=== PATIENT | female | born 1985 | race Caucasian/White ===

== ENCOUNTER 2024-02-23 22:06 | Outpatient (CLI) | payer OTHER | END 2024-02-23 22:07 | disposition critical access hospital (66) | LOC: EMS 22:06 | DX: S01.112A Laceration without foreign body of left eyelid and periocular area, initial encounter (principal); R51.9 Headache, unspecified; W18.30XA Fall on same level, unspecified, initial encounter; Y93.G3 Activity, cooking and baking; Y92.000 Kitchen of unspecified non-institutional (private) residence as the place of occurrence of the external cause; F10.90 Alcohol use, unspecified, uncomplicated | CPT/HCPCS: A0425; A0429 ==

== ENCOUNTER 2024-02-23 22:24 | Emergency (ER) | payer OTHER ==
--- NOTE | 2024-02-23 23:49 | ED Physician Documentation ---
PD HPI SYNCOPE - Stated complaint Stated Complaint: SYNCOPE/FACE LAC - Chief complaint Chief Complaint: Neuro - History obtained from History obtained from: Patient - History of Present Illness Timing - onset: Enter time (21:15) Duration: Minutes Preceding symptoms: Light headed, Generalized weakness - Additional information Additional information: HPI from patient as well as s.o. (in ED at bedside). Patient presents due to syncopal episode. Patient was at home cooking dinner when she suddenly became lightheaded and had generalized weakness and within seconds had LOC; she does not recall events after the syncopal event until EMS was on scene assessing her. Patient's s.o. was in the same room on the couch although not facing her at the time of the event. He heard her fall to the ground and immediately checked on her. He did not see any seizure activity. She was unconscious and not responding but breathing. She has gradually returned to baseline LOC (AAOx3). Arrives via EMS with cervical collar in place. She sustained facial laceration due to the fall. Denies h/o similar symptoms/event (no h/o syncopal episodes). She denies chest pain, shortness of breath, palpitations. c/o headache that is generalized but worse at site of facial injury (left suparorbital ridge) Review of Systems Cardiac: reports: Reviewed and negative Respiratory: reports: Reviewed and negative GI: reports: Reviewed and negative : denies: Incontinent Musculoskeletal: reports: Reviewed and negative Neurologic: reports: Generalized weakness, Syncope, Headache, Head injury. 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 : None HEENT: None Psych: ADD/ADHD Musculoskeletal: None Derm: None - Past Surgical History Past Surgical History: No - Present Medications Home Medications: Ambulatory Orders Medication Instructions Recorded Confirmed Dextroamphetamine/Amphetamine 20 mg PO DAILY 02/23/24 02/23/24 [Adderall 20 mg Tablet] Azithromycin [Zithromax] 250 mg PO DAILY #4 tablet 02/24/24 - Allergies Allergies/Adverse Reactions: Allergies Allergy/AdvReac Type Severity Reaction Status Date / Time No Known Drug Allergies Allergy Verified 02/23/24 22:42 - Social History Does the pt smoke?: No Smoking Status: Never smoker Does the pt drink ETOH?: Yes - Immunizations Immunizations are current?: Yes PD ED PE NORMAL - Vitals Vital signs reviewed: Yes - General General: Alert and oriented X 3, No acute distress, Well developed/nourished - Cardiac Cardiac: RRR - Respiratory Respiratory: No respiratory distress, Clear bilaterally - Abdomen Abdomen: Soft, Non tender - Extremities Extremities: No deformity, No tenderness to palpate, Normal ROM s pain - Neuro Neuro: Alert and oriented 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 TTP without crepitus or bony-step off deformity) - Cardiac Cardiac: Tachy, Regular Rhythm, Murmur Present (1/6 TURNER greatest at cardiac base) Results - Vitals Vitals: Vital Signs - 24 hr 02/23/24 02/23/24 02/24/24 22:31 23:45 01:00 Temperature 36.8 C Heart Rate 110 H 96 90 Respiratory 16 23 18 Rate Blood Pressure 125/85 H 154/102 H 140/81 H O2 Saturation 100 100 99 02/24/24 02:48 Temperature Heart Rate 82 Respiratory 16 Rate Blood Pressure 135/82 H O2 Saturation 98 Oxygen O2 Source Room air - EKG (time done) No standard instances EKG releavant findings:: EKG personally interpreted by author of this note. Relevant findings are: Rate: Rate (enter#) (94) Rhythm: NSR [place]: Normal Intervals: Normal NM QRS: Normal Ischemia: ST elevation c/w repol (V2, V3) - Labs Labs: Laboratory Tests 02/23/24 02/23/24 02/23/24 00:00 00:00 23:58 WBC 5.5 RBC 3.56 L Hgb 11.4 L Hct 35.2 L MCV 98.9 MCH 32.0 H MCHC 32.4 RDW 12.4 Plt Count 188 MPV 10.7 Neut # (Auto) 2.9 Lymph # (Auto) 2.0 [place] # (Auto) 0.4 Eos # (Auto) 0.1 Baso # (Auto) 0.0 Absolute Nucleated RBC 0.00 Nucleated RBC % 0.0 Sodium 139 Potassium 3.6 Chloride 108 Carbon Dioxide 22 Anion Gap 9.0 BUN 24 H Creatinine 0.8 Estimated GFR (MDRD) 80 L Glucose 92 Calcium 9.0 Total Bilirubin 0.3 AST 23 ALT 14 Alkaline Phosphatase 40 L Troponin I High Sens < 2.3 L Total Protein 6.1 L Albumin 4.0 Globulin 2.1 Albumin/Globulin Ratio 1.9 Lipase 15 - Rads (name of study) CTH Relevant Findings:: Prelim report reviewed, See rad report CT cervical spine Relevant Findings:: Prelim report reviewed, See rad report chest xray Relevant Findings:: Prelim report reviewed, See rad report Procedures - Laceration (location) Face left Length in cm: 2.5 Wound type: Linear, Into subcut fat, Clean Neurovascular status: Sensory intact, Motor intact, Vascular intact Anesthesia: Lidocaine 1% Wound preparation: Chlorhexadine, Irrigated copiously NS, Wound explored Skin layer closure: Running (7 throws running suture), Size #-0 - enter number (5-0) Other: Patient tolerated well, No complications, Neurovascular intact, Tetanus UTD PD Medical Decision Making - ED course Complexity details: reviewed results, re-evaluated patient, considered differential, d/w patient ED course: 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 No concerning findings on CBC (hgb 11.4 noted). Mildly elevated BUN with normal creatinine. Normal hs-cTn. EKG c/w repolarization pattern. Unremarkable CTH and CT cervical spine. Left perihilar infiltrate on CXR. She denies URI symptoms, specifically has not been having dyspnea, cough, fevers. The infiltrate might represent aspiration due to the syncopal event. She is given 500mg zithromax PO to cover possible early LRTI, and I am providing rx for 4 more days of 250mg QD azithromycin. Facial laceration repaired as per procedure note, above. Results d/w patient, return precautions reviewed. Advised to seek follow up with PCP within 7-10 days for both removal of sutures as well as reevaluation regarding the syncopal episode. Departure - Departure Disposition: 01 Home, Self Care Clinical Impression: Laceration Syncope Qualifiers: Syncope type: unspecified Qualified Code(s): R55 - Syncope and collapse Condition: Good Instructions: ED Laceration Facial Sutr Tape, ED Fainting Unkn Cause Prescriptions: Azithromycin [Zithromax] 250 mg PO DAILY #4 tablet Comments: There were no concerning nor diagnostic findings on the tests performed tonight included the CT scans of your head and neck, your EKG, and your blood test. There was a small area of haziness in the left lung on the chest x-ray, possibly due to pneumonia; to cover this possibility, I am prescribing an antibiotic (azithromycin) and you were given the first dose in the ER. Follow-up with your primary care provider in 7-10 days for removal of the stitches as well as reevaluation regarding tonight's episode. Further testing, at your primary care provider's discretion, might be needed even if your symptoms do not recur. Discharge Date/Time: 02/24/24 02:49
[2024-02-24] MEDS: BUFFERED LIDOCAINE 10 ML SYRINGE SUBQ STA (00:02)
[2024-02-24] MEDS: SODIUM CHLORIDE 0.9% 1,000 ML IV STA (00:03)
[2024-02-24 00:32] LABS: BASOPHILS % (AUTO) 0.7 %; EOSINOPHILS # (AUTO) 0.1 10^3/uL (0.0-0.7); EOSINOPHILS % (AUTO) 2.2 %; HCT - HEMATOCRIT 35.2 % (37.0-47.0); HGB - HEMOGLOBIN 11.4 g/dL (12.0-16.0); LYMPHOCYTES % (AUTO) 36.5 %; MEAN CORPUSCULAR HGB CONC 32.4 g/dL (32.0-36.0); MEAN CORPUSCULAR VOLUME 98.9 fL (81.0-99.0); MEAN PLATELET VOLUME 10.7 fL (7.9-10.8); MONOCYTES # (AUTO) 0.4 10^3/uL (0.0-1.0); MONOCYTES % (AUTO) 7.3 %; NEUTROPHILS # (AUTO) 2.9 10^3/uL (1.5-6.6); NEUTROPHILS % (AUTO) 53.1 %; PLT - PLATELET COUNT 188 10^3/uL (130-450); RED BLOOD COUNT 3.56 10^6/uL (4.20-5.40); RED CELL DISTRIBUTION WIDTH 12.4 % (12.0-15.0); WHITE BLOOD COUNT 5.5 x10^3/uL (4.8-10.8)
--- NOTE | 2024-02-24 01:07 | CT Report ---
PROCEDURE: Head WO INDICATIONS: syncope, head injury, GRAY TECHNIQUE: Noncontrast 4.5 mm thick angled axial sections acquired from the foramen magnum to the vertex. For r adiation dose reduction, the following was used: automated exposure control, adjustment of mA and/or kV according to patient size. COMPARISON: None. FINDINGS: Image quality: Excellent. CSF spaces: Basal cisterns are patent. No extra-axial fluid collections. Ventricles are normal in size and shape. Brain: No midline shift. No intracranial masses or hemorrhage. Carpenter-white matter interface is norm al. Skull and face: Calvarium and visualized facial bones are intact, without suspicious lesions. Sinuses: Visualized sinuses and mastoids are clear. IMPRESSION: No acute intracranial pathology. Reviewed by: Tu Szymanski MD on 02/24/2024 1:06 AM PDT Approved by: Tu Szymanski MD on 02/24/2024 1:06 AM PDT Station ID: [id number]
--- NOTE | 2024-02-24 01:11 | CT Report ---
PROCEDURE: Cervical Spine WO INDICATIONS: syncope, head injury TECHNIQUE: Noncontrast 3 mm thick sections acquired from the skull base to the T4 level. Sagittal and coronal r eformats were then constructed. For radiation dose reduction, the following was used: automated exp osure control, adjustment of mA and/or kV according to patient size. COMPARISON: None. FINDINGS: Image quality: Excellent. Bones: No fractures or dislocations. Loss of normal cervical lordosis. Visualized superior ribs are intact. Soft tissues: Prevertebral soft tissues are normal in thickness. No paravertebral hematomas. No ap ical pneumothoraces. Enlarged right cervical lymph nodes are noted, measuring up to 1.1 cm in short axis. IMPRESSION: 1. No fracture or dislocation. 2. Loss of normal cervical lordosis, probably secondary to muscle spasm. 3. Mildly enlarged right cervical lymph nodes, most likely reactive. Reviewed by: Tu Szymanski MD on 02/24/2024 1:10 AM PDT Approved by: Tu Szymanski MD on 02/24/2024 1:10 AM PDT Station ID: [id number]
--- NOTE | 2024-02-24 01:31 | XRAY Report ---
PROCEDURE: Chest 1V INDICATIONS: syncope TECHNIQUE: One view of the chest was acquired. COMPARISON: None. FINDINGS: Surgical changes and devices: None. Lungs and pleura: Mild perihilar infiltrate may be present. No pleural effusions or pneumothorax. Mediastinum: Mediastinal contours appear normal. Heart size is normal. Bones and chest wall: No suspicious bony lesions. Overlying soft tissues appear unremarkable. IMPRESSION: Mild left perihilar infiltrate present. Reviewed by: Tu Szymanski MD on 02/24/2024 1:29 AM PDT Approved by: Tu Szymanski MD on 02/24/2024 1:29 AM PDT Station ID: [id number]
[2024-02-24] MEDS: BACITRACIN ZINC OINT 1 PACKET TOP STA ×2 (02:35→02:53)
[2024-02-24] MEDS: AZITHROMYCIN 250 MG TABLET PO STA (02:37)
[2024-02-24 02:53] VITALS: BP 135/82; O2SAT 98
== END 2024-02-24 02:49 | disposition home or self-care (01) ==
LOC: ED 22:24
DX: S01.81XA Laceration without foreign body of other part of head, initial encounter (principal); W18.39XA Other fall on same level, initial encounter; Y92.000 Kitchen of unspecified non-institutional (private) residence as the place of occurrence of the external cause; R55 Syncope and collapse
CPT/HCPCS: 12011; 36415; 70450; 71045; 72125; 80053; 83690; 84484; 85025; 93005; 99284; A9270